=== PATIENT | male | born 1995 | race Caucasian/White ===

== ENCOUNTER 2019-06-22 18:48 | Emergency (ER) | payer OTHER, SELFPAY ==
[2019-06-22] VITALS (14 sets, daily range): BP systolic 129–141; BP diastolic 68–102; PULSE 83–127; RESP 16–41; TEMP 36.8; O2SAT 90–99
--- NOTE | 2019-06-22 18:53 | ED_ITS ---
HPI - Extremity Injury (Upper) General Chief Complaint: Extremity Injury, Upper Stated Complaint: states right arm broken from skate boarding Time Seen by Provider: 06/22/19 18:50 Source: patient Mode of arrival: Ambulatory Limitations: no limitations History of Present Illness HPI narrative: 23M smoker presents with the chief complaint of skateboarding injury resutling in pain to right wrist. He denies any other injury and states that he was skateboarding and fell on an outstretched wrist and now has pain, particular with any range of motion. He denies any numbness, tingling or weakness. He denies any head neck or back pain. He is otherwise well and free of complaint MD complaint: injury to: right and wrist Other Extremity Injury: Right: wrist Other injuries: none Handedness: right Place: outdoors Severity: moderate Relieving factors: none Exacerbating factors: movement of extremity Context: fall and direct blow Associated symptoms: denies other symptoms Related Data Previous Rx's Medication Instructions Recorded hydrocodone-acetaminophen 1 tab PO Q4-6H PRN #20 tab 06/22/19 Allergies Allergy/AdvReac Type Severity Reaction Status Date / Time No Known Drug Allergies Allergy Verified 06/22/19 19:11 Review of Systems Constitutional Constitutional: Denies chills, Denies fatigue, Denies fever(s), Denies frequent falls, Denies lethargy and Denies weakness Eyes Eyes: Denies change in vision, Denies eye discharge, Denies irritation and Denies loss of vision ENT Ears, Nose, Mouth, and Throat: Denies change in voice, Denies dizziness, Denies neck pain, Denies sore throat and Denies throat swelling Cardiovascular Cardiovascular: Denies chest pain, Denies irregular heart rhythm, Denies lightheadedness, Denies palpitations, Denies dyspnea, Denies dyspnea on exertion and Denies orthopnea Respiratory Respiratory: Denies cough, Denies dyspnea, Denies dyspnea on exertion and Denies wheezing Gastrointestinal Gastrointestinal: Denies abdominal pain, Denies change in bowel habits, Denies diarrhea, Denies nausea and Denies vomiting Genitourinary Genitourinary: Denies hematuria, Denies flank pain, Denies urinary incontinence and Denies urinary urgency Musculoskeletal Musculoskeletal: Denies back pain, Reports joint swelling, Reports limited range of motion, Denies muscle weakness, Denies neck pain, Denies numbness and Denies tingling Integumentary/Breasts Skin/Breast: Denies pruritus, Denies erythema, Denies rash and Denies wounds Neurologic Neurologic: Denies behavioral changes, Denies confusion, Denies dizziness, Denies frequent falls, Denies loss of vision, Denies numbness, Denies tingling and Denies weakness Psychiatric Psychiatric: Denies anxiety, Denies behavioral changes, Denies confusion, Denies depression, Denies homicidal ideation and Denies suicidal ideation Endocrine Endocrine: Denies fatigue, Denies flushing and Denies palpitations Hematologic/Lymphatic Hematologic/Lymphatic: Denies easy bruising Allergic/Immunologic Allergic/Immunologic: Denies urticaria, Denies throat swelling and Denies wheezing Patient History Medical History Anxiety (Chronic) Depression (Chronic) History of meningitis (Resolved) Surgical History History of esophagogastroduodenoscopy (EGD) (Chronic) Social History Smoking Status: Current every day smoker Smoking Status: Current every day smoker Exam Narrative Exam Narrative: GENERAL: [23] year old patient appears stated age. Well- nourished, well-developed patient, in mild distress. HEAD: Atraumatic. Normocephalic. EYES: Pupils equal round and reactive. Extraocular motions intact. No scleral icterus. No injection or drainage. ENT: Nose without bleeding, purulent drainage. Throat without erythema, t onsillar hypertrophy or exudate. Airway patent. NECK: Trachea midline. Non tender CARDIOVASCULAR: Regular rate and rhythm without murmurs, gallops, or rubs. RESPIRATORY: Clear to auscultation. Breath sounds equal bilaterally. No wheezes, rales, or rhonchi. GASTROINTESTINAL: Abdomen soft, non-tender, nondistended. EXTREMITIES: Obvious deformity to right wrist consistent with distal radius fracture. This is closed, isolated and neurovascularly intact. Tender to palpation over dorsal wrist BACK: Nontender without deformity or crepitance. No flank tenderness. NEURO: AOx3. SKIN: No rash or erythema of visible areas Initial Vital Signs Initial Vital Signs: Vital Signs Temperature 98.2 F 04/01/20 18:53 Pulse Rate 84 06/22/19 18:53 Respiratory Rate 18 06/22/19 18:53 Blood Pressure 136/91 H 06/22/19 18:53 Pulse Oximetry 99 06/22/19 18:53 Procedures Orthopedic Fracture Reduction Fracture #1: Time Out Performed: Yes Side: right Fracture Reduction Location: radius Analgesia: procedural sedation Technique: direct manipulation and traction/counter-traction Post Reduction X-rays Demonstrate: acceptable reduction Post-reduction neuro exam: intact Post-reduction vascular exam: intact Splint Applied: Yes Patient Tolerated Procedure: Well Orthopedic Splinting/Casting Injury #1: Side: right Upper Extremity Injury Location: wrist Upper Extremity Immobilizer: sling/shoulder immobilizer and sugar tong splint Post splinting neuro exam: intact Post splinting vascular exam: intact Placed by: Nursing Procedural Sedation Consent signed: Yes Time out performed: Yes Indication: fracture/dislocation reduction ASA Class: II Mallampati Airway Classification: Class I Preparation: cardiac specialist applied, pulse oximeter, capnometry used, supplemental O2 applied, suction/airway equipment at bedside and IV secured IV Propofol dose (mg): 160 Intraservice time/total sedation time (min): 10 ED Sedation Level: Moderate (Concious) Patient Tolerated Procedure: Well Complications: none Course Orders Ordered: ED Orders 06/22/19 18:53 XR wrist RT min 3V Stat 06/22/19 19:56 XR wrist RT 2V Stat Discontinued Medications Propofol (Diprivan) 65 mg 1 mg/kg (65 mg) IV NOW ONE Stop: 06/22/19 19:06 Last Admin: 06/22/19 19:33 Dose: 65 mg Documented by: DAYANNA Stephens Consultation #1: call to legal secretary receptionist orthopedics ([place]), she will see him in clinic. Happy with reduction, sugartong sling. Vital Signs Vital signs: Vital Signs - 8 hr 06/22/19 18:53 06/22/19 18:55 06/22/19 19:05 Temperature 98.2 F Pulse Rate 84 94 H Pulse Rate [Right Radial] 89 Respiratory Rate 18 22 Blood Pressure 136/91 H Blood Pressure [Right Arm] 139/102 H Pulse Oximetry 99 90 L 06/22/19 19:15 06/22/19 19:46 06/22/19 19:55 Temperature Pulse Rate 97 H 127 H Pulse Rate [Right Radial] Respiratory Rate 16 32 H 17 Blood Pressure Blood Pressure [Right Arm] 139/102 H 132/68 Pulse Oximetry 98 97 06/22/19 20:00 06/22/19 20:05 06/22/19 20:10 Temperature Pulse Rate 97 H 99 H 90 Pulse Rate [Right Radial] Respiratory Rate 35 H 35 H 41 H Blood Pressure Blood Pressure [Right Arm] 132/68 141/99 H 137/87 Pulse Oximetry 99 97 97 06/22/19 20:14 06/22/19 20:18 06/22/19 20:22 Temperature Pulse Rate 87 88 86 Pulse Rate [Right Radial] Respiratory Rate 22 26 H 24 Blood Pressure Blood Pressure [Right Arm] 129/79 136/87 Pulse Oximetry 95 96 95 06/22/19 20:24 06/22/19 20:44 Temperature Pulse Rate 83 83 Pulse Rate [Right Radial] Respiratory Rate 34 H 34 H Blood Pressure 136/87 Blood Pressure [Right Arm] 136/87 Pulse Oximetry 98 98 Discharge Plan Departure Patient Disposition: Home Clinical Impression: Distal radial fracture Qualifiers: Encounter type: initial encounter Fracture type: closed Fracture morphology: Colles' Laterality: right Qualified Code(s): S52.531A - Colles' fracture of right radius, initial encounter for closed fracture Fracture of scaphoid Qualifiers: Encounter type: initial encounter Scaphoid bone location: middle third Fracture type: closed Fracture alignment: nondisplaced Laterality: right Qualified Code(s): S62.024A - Nondisplaced fracture of middle third of navicular [scaphoid] bone of right wrist, initial encounter for closed fracture Discharge Date/Time: 06/22/19 20:44 Instructions: DI for Distal Radius Fracture Activity Restrictions/Additional Instructions: *You have been diagnosed with [distal radius fracture, scaphoid fracture ] *What to do: *Take medications as directed *Follow up with [facility] in 2-3 days, call for an appointment. Let them know you were seen in the Emergency Department and that we ask that you be seen in follow up *Return to ER if you should have any new, worsening or concerning symptoms Prescriptions: New hydrocodone-acetaminophen 5-325 mg tablet 1 tab PO Q4-6H PRN (Reason: pain) Qty: 20 RF: 0 Referrals: Nannette Mederos MD [Physician] -
--- NOTE | 2019-06-22 18:53 | DI.RAD.S_ITS ---
PROCEDURE: XR WRIST RT MIN 3V INDICATIONS: fall on right wrist, obvious deformity TECHNIQUE: 4 views of the wrist were acquired. COMPARISON: None. FINDINGS: Bones: Impacted in posterior displaced distal radial fracture. No definitive intra-articular extension. Scaphoid view: Lucency, nondisplaced is noted within the mid scaphoid. Soft tissues: No suspicious soft tissue calcifications. IMPRESSION: 1. Impacted in posterior displaced distal radial fracture. 2. Scaphoid lucency as above appearing most consistent with nondisplaced fracture. Dictated by: Katherine Moreno M.D. on 06/22/2019 at 19:15 Approved by: Katherine Moreno M.D. on 06/22/2019 at 19:17
[2019-06-22] MEDS: propofoL 200 MG/20 ML VIAL 65 MG IV (19:33)
--- NOTE | 2019-06-22 19:56 | DI.RAD.S_ITS ---
PROCEDURE: XR WRIST RT 2V INDICATIONS: post reduction TECHNIQUE: 2 views of the wrist were acquired. COMPARISON: [facility], CR, XR WRIST RT MIN 3V, 06/22/2019, 18:49. FINDINGS: Bones: Interval reduction of previous impacted distal radial fracture. There is improved anatomic alignment with mild persistent dorsal angulation. Scaphoid view: Previously identified a scaphoid lucency is not as well-seen on current exam. Soft tissues: No suspicious soft tissue calcifications. IMPRESSION: Interval reduction distal radial fracture with improved alignment. Dictated by: Katherine Moreno M.D. on 06/22/2019 at 20:25 Approved by: Katherine Moreno M.D. on 06/22/2019 at 20:26
== END 2019-06-22 20:44 | disposition home or self-care (01) ==
PROVIDERS: Emergency Provider Emergency Medicine
DX: S52.531A Colles' fracture of right radius, initial encounter for closed fracture (principal); S62.024A Nondisplaced fracture of middle third of navicular [scaphoid] bone of right wrist, initial encounter for closed fracture; V00.131A Fall from skateboard, initial encounter
CPT/HCPCS: 25605; 29105; 73100; 73110; 94770; 99152; 99285; J2704